=== PATIENT | female | born 1970 | race Caucasian/White ===

== ENCOUNTER 2023-05-27 06:34 | Emergency (ER) | payer MEDICAID ==
[~2023-05-27] VITALS: Ht 162.6 cm; Wt 90.0 kg
[2023-05-27 06:37] VITALS: O2SAT 100
[2023-05-27 08:09] LABS: BASOPHILS % 0.8 % (0.0-2.0); EOSINOPHILS % 1.6 % (0.0-5.0); HEMATOCRIT. 33.5 % (36.0-48.0); HEMOGLOBIN. 10.1 g/dL (12.0-16.0); LYMPHOCYTES % 21.5 % (20.0-50.0); MEAN CORPUSCULAR HEMOGLOBIN 18.6 pg (28.0-32.0); MEAN CORPUSCULAR HGB CONC 30.2 g/dL (31.0-37.0); MEAN CORPUSCULAR VOLUME 61.6 fL (81.0-99.0); MEAN PLATELET VOLUME 8.8 fl (7.4-10.4); MONOCYTES % 5.4 % (2.0-8.0); NEUTROPHILS % 70.7 % (40.0-76.0); PLATELET 435 x1000/uL (130-400); RED BLOOD CELL COUNT 5.44 mill/uL (4.2-5.4); RED CELL DISTRIBUTION WIDTH 18.5 % (11.6-14.6)
[2023-05-27 08:17] LABS: ADD RBC MORPHOLOGY YES; DIFFERENTIAL COMMENT 1
[2023-05-27 08:21] LABS: CHLORIDE 102 mEq/L (98-107); INDEX HEMOLYSI 4 (1-3); INDEX ICTERIC 1 (1-4); INDEX LIPEMIC 1 (1-3); SODIUM 135 mEq/L (136-145)
[2023-05-27 08:44] LABS: POTASSIUM 4.2 mEq/L (3.5-5.1)
[2023-05-27 08:58] LABS: ALANINE AMINOTRANSFERASE 18 IU/L (13-61); ALBUMIN 3.2 g/dL (3.4-5.0); ASPARTATE AMINOTRANSFERASE 22 IU/L (15-37); BILIRUBIN TOTAL 0.4 mg/dL (0.1-1.0); CREATININE 0.8 mg/dL (0.6-1.3); GLUCOSE 129 mg/dL (70-105); NT PRO B-TYPE NATRIURETIC PEP 39 pg/mL (5-125); PROTEIN TOTAL 8.8 g/dL (6.0-8.3); UREA NITROGEN BLOOD 15 mg/dL (7-21)
[2023-05-27 09:00] LABS: PLATELET ESTIMATE SLIGHTLY INCREASED
[2023-05-27 09:01] LABS: ANISOCYTOSIS 1+; MICROCYTOSIS 3+; TROPONIN I HIGH SENSITIVITY < 4 ng/L (<54)
[2023-05-27] MEDS ORDERED: P50 PO (09:08)
[2023-05-27] MEDS ORDERED: ALBU6.7H15 INH (09:08)
[2023-05-27 09:21] VITALS: BP 153/95; PULSE 92; RESP 21; TEMP 98.5
[2023-05-27 10:04] LABS: CARBON DIOXIDE 26 mEq/L (21-32)
== END 2023-05-27 09:28 | disposition home or self-care (01) ==
LOC: ER 06:34
DX: J45.909 Unspecified asthma, uncomplicated (principal); I10 Essential (primary) hypertension
CPT/HCPCS: 80053; 83880; 85025; 84484; 36415; 71045; 93005; 99285; Z7610 ×3